=== PATIENT | male | born 1965 | race Hispanic/Latino ===

== ENCOUNTER 2020-04-21 17:53 | Inpatient (IN) | payer MEDICARE, MEDICAID, OTHER ==
[2020-04-21 18:22] LABS: #Basophils 0.1 thou/uL (0.0-0.2); #Eosinphils 0.4 thou/uL (0.0-0.7); #Monocytes 0.4 thou/uL (0.11-0.59); #Neutrophils 3.6 thou/uL (1.40-6.50); %Basophils 1.2 % (0.0-1.0); %Eosinophils 5.2 % (0.0-10.0); %Lymphocytes 39.7 % (21.0-51.0); %Monocytes 5.8 % (0.0-10.0); %Neutrophils 48.2 % (42.0-75.0); Hemoglobin 13.7 g/dL (14.0-18.0); Mean Corpuscular HGB CONC 33.8 g/dL (32.0-36.0); Mean Corpuscular Hemoglobin 28.3 pg (27.0-31.0); Mean Corpuscular Volume 83.7 fL (78.0-98.0); Mean Platelet Volume 8.5 fL (7.4-10.4); Platelet Count 174 thou/uL (130-400); RBC Distribution Width 12.2 % (11.5-14.5); Red Blood Cell (RBC) Count 4.86 mill/uL (4.70-6.10); White Blood Cell (WBC) Count 7.4 thou/uL (4.8-10.8)
[2020-04-21 19:16] LABS: ALT (SGPT) 21 U/L (8-55); AST (SGOT) 17 U/L (5-34); Albumin 4.2 g/dL (3.5-5.0); Alkaline Phosphatase 99 U/L (40-110); Anion Gap 12 mmol/L (10-20); BUN (Urea Nitrogen) 18 mg/dL (8.4-25.7); Bilirubin, Total 0.3 mg/dL (0.2-1.2); Calc. Creatinine Clearance 0 mL/min (70-130); Calcium 9.2 mg/dL (7.8-10.44); Carbon Dioxide 29 mmol/L (22-29); Chloride 97 mmol/L (98-107); Estimated GFR-MDRD 39; Globulin 4.2 g/dL (2.4-3.5); Glucose 401 mg/dL (70-105); Potassium 4.4 mmol/L (3.5-5.1); Protein, Total 8.4 g/dL (6.0-8.3); Sodium 134 mmol/L (136-145)
--- NOTE | 2020-04-21 20:01 | RAD ---
RIGHT FOOT THREE VIEWS: 04/21/20 HISTORY: History of foot surgery. Toe wound to right foot. In comparison to a 09/15/19 study, amputation at the more proximal aspect of the first metatarsal is n oted. Also, there was a previously noted surgical resection of the second metatarsal head. There is a significant change in the metatarsals compared to the prior examination with expanded appearance to the metatarsal which appears to be related to a healed fracture but there is added deformity and irre gularity to the amputated distal end of the second metatarsal and some irregularity and some more chr onic erosive change of the base of the proximal phalanx. These changes would suggest more of a chron ic osteomyelitis fixture. The other metatarsals appear unremarkable. No other findings. IMPRESSION: Significant change in the appearance of the resected head of the second metatarsal with more chronic appearing erosive change and some subtle erosive change of the base of the proximal phalanx. Changes would suggest underlying osteomyelitis, probably more chronic in nature given the plain film appear ance. POS: OFF
[2020-04-21] MEDS ORDERED: Piperacillin/Tazobactam 4.5 GM VIAL ONE (20:51)
[2020-04-21] MEDS ORDERED: Vancomycin 1 GM/200 ML BAG ONE (20:51)
[2020-04-21] MEDS ORDERED: Dextrose 5% in Water 1,000 ML IV PRN (21:21)
[2020-04-21] MEDS ORDERED: Acetaminophen 325 MG TAB PO PRN (21:21)
[2020-04-21] MEDS ORDERED: Dextrose 50% Abboject 50 ML SYRINGE SLOW IVP PRN (21:21)
[2020-04-21] MEDS ORDERED: Ondansetron ODT 4 MG TAB PO PRN (21:21)
--- NOTE | 2020-04-21 21:45 | PDOC.EVN ---
Event Note - Event Note Event Note: [id number] HP
[2020-04-21] MEDS ORDERED: metroNIDAZOLE 500 MG in Premix Bag 1 BAG IVPB SCH (22:00)
[2020-04-21] MEDS ORDERED: Cefepime 2 GM VIAL ONE (22:30)
[2020-04-21] MEDS ORDERED: metroNIDAZOLE 500 MG/100 ML BAG ONE (23:20)
--- NOTE | 2020-04-21 23:35 | HP ---
CHIEF COMPLAINT: Right foot infection. HISTORY OF PRESENT ILLNESS: Mr. Hearn is a 55-year-old male, with past medical history of diabetes mellitus, hypertension, osteomyelitis, toe amputation, who presented to the emergency room with wound infection of the right foot and hyperglycemia. The patient's family member at the bedside reports that the patient had a toe amputation performed about a year ago and had issues with wound healing since then. The patient has wound care visits once per week and today they noticed some drainage to that. They were concerned about it, and the blood sugar was high. They advised the patient to go to the emergency room. The patient has no history of fever, body aches, chills, nausea, vomiting, diarrhea, chest pain, or shortness of breath. The patient has been compliant with his medications including insulin. In the emergency room, the patient had an elevated glucose of 401. Lab work including x-ray of the foot concerning for underlying osteomyelitis. Septic workup done in the ED. The patient is started on IV antibiotics. Surgeon is being consulted. The patient is being admitted to hospital for further management. PAST MEDICAL HISTORY: 1. Osteomyelitis of the foot. 2. Diabetes mellitus. 3. Hypertension. PAST SURGICAL HISTORY: Right great toe amputation. FAMILY HISTORY: Reviewed and noncontributory. HOME MEDICATIONS: Please see home medication reconciliation form for updated medications. ALLERGIES: NO KNOWN ALLERGIES. SOCIAL HISTORY: No history of smoking, alcohol drinking, or drug abuse. REVIEW OF SYSTEMS: Review of 14 systems negative except what is mentioned in the history of present illness. PHYSICAL EXAMINATION: GENERAL: The patient is awake, does not appear to be in acute distress. VITAL SIGNS: Blood pressure is 149/80, pulse is 81, respiratory rate 17, temperature is 98.3, oxygen saturation 98% on room air. HEAD AND NECK: Normocephalic, atraumatic. Neck is supple. No JVD. CHEST: Fair bilateral air entry. HEART: S1, S2. Regular. ABDOMEN: Soft, nontender. Bowel sounds present. NEUROLOGIC: Awake, alert. Moving extremities. PSYCH: Unable to assess. EXTREMITIES: Right first toe amputated with a thickened white discolored area around the wound. No fluctuance. No obvious drainage. The wound has a foul odor. SKIN: As mentioned above. LABORATORY DATA: Sodium 134. Creatinine 1.8, baseline is around 1.3. Glucose is 401. WBC 7.4, hemoglobin 13.7, platelets 174. ESR is 19. CRP is less than 0.5. ASSESSMENT: 1. Acute osteomyelitis, foot. 2. Diabetic foot infection. 3. Acute kidney injury. 4. Diabetes mellitus with hyperglycemia. 5. Hypertension. 6. History of toe amputation. PLAN: 1. Admit. 2. Septic workup done in the ED. 3. IV antibiotics. 4. Surgeon is being consulted for evaluation and further management. 5. Consult Wound Care. 6. Monitor and control blood glucose. 7. Reconcile home medications. 8. DVT prophylaxis as appropriate. 9. Expected length of stay, 2 midnights or more. Job ID: [id number]
[2020-04-22] MEDS: Sodium Chloride 0.9% 1,000 ML IV SCH ×4 (00:03→23:27)
[2020-04-22 00:14] VITALS: BMI 31.3
[2020-04-22 05:36] LABS: #Basophils 0.1 thou/uL (0.0-0.2); #Eosinphils 0.5 thou/uL (0.0-0.7); #Lymphocytes 2.9 thou/uL (1.20-3.40); #Monocytes 0.6 thou/uL (0.11-0.59); #Neutrophils 4.3 thou/uL (1.40-6.50); %Basophils 0.7 % (0.0-1.0); %Eosinophils 5.5 % (0.0-10.0); %Lymphocytes 34.6 % (21.0-51.0); %Monocytes 7.2 % (0.0-10.0); Hemoglobin 12.8 g/dL (14.0-18.0); Mean Corpuscular HGB CONC 33.7 g/dL (32.0-36.0); Mean Corpuscular Hemoglobin 28.3 pg (27.0-31.0); Mean Corpuscular Volume 83.9 fL (78.0-98.0); Mean Platelet Volume 8.4 fL (7.4-10.4); Platelet Count 150 thou/uL (130-400); RBC Distribution Width 12.2 % (11.5-14.5); Red Blood Cell (RBC) Count 4.53 mill/uL (4.70-6.10); White Blood Cell (WBC) Count 8.3 thou/uL (4.8-10.8)
[2020-04-22 06:02] LABS: Anion Gap 12 mmol/L (10-20); BUN (Urea Nitrogen) 17 mg/dL (8.4-25.7); Calc. Creatinine Clearance 71 mL/min (70-130); Calcium 8.1 mg/dL (7.8-10.44); Carbon Dioxide 24 mmol/L (22-29); Chloride 105 mmol/L (98-107); Estimated GFR-MDRD 45; Glucose 264 mg/dL (70-105); Potassium 4.2 mmol/L (3.5-5.1); Sodium 137 mmol/L (136-145)
[2020-04-22 08:06] LABS: Glucose 213 mg/dL (70-105)
[2020-04-22] MEDS: metroNIDAZOLE 500 MG in Premix Bag 1 BAG IVPB SCH ×3 (08:16→23:27)
[2020-04-22] MEDS: Vancomycin 1 GM in Premix Bag 1 BAG IVPB SCH ×2 (08:16→20:31)
[2020-04-22] MEDS: Heparin 5,000 UNITS/ML VIAL SC SCH ×3 (08:16→20:31)
[2020-04-22] MEDS ORDERED: Insulin Glargine 10 UNITS in Pre-Filled Syringe 1 EACH SC SCH ×2 (10:00→21:00)
[2020-04-22] MEDS: HumaLOG 300 UNITS/3 ML VIAL SC PRN ×3 (12:17→22:01)
[2020-04-22] MEDS: Cefepime 1 GM in Sodium Chloride 0.9% 100 ML IVPB SCH ×2 (12:19→22:01)
[2020-04-22 12:21] LABS: Glucose 288 mg/dL (70-105)
[2020-04-22 12:37] LABS: SARS-CoV-2 MS2 Positive; SARS-CoV-2 N Gene Negative; SARS-CoV-2 S Gene Negative; SARS-CoV-2 by NAA Not Detected (NotDetected); SARS-CoV-2 orf1ab Negative
--- NOTE | 2020-04-22 13:02 | PDOC.HOSPP ---
- Subjective Encounter Date: 04/22/20 Subjective: No new complaints. - Objective Vital Signs & Weight: Vital Signs (12 hours) Temp Pulse Resp BP Pulse Ox 04/22/20 11:38 98.0 F 80 12 155/98 H 98 04/22/20 07:44 97.6 F 89 14 160/93 H 95 04/22/20 03:41 97.8 F 75 18 117/78 93 L Weight Admit Weight 212 lb Weight 212 lb I&O: 04/21/20 04/22/20 04/23/20 06:59 06:59 06:59 Intake Total 2300 220 Balance 2300 220 Result Diagrams: 04/22/20 05:22 04/22/20 11:48 Additional Labs: Accuchecks 04/22/20 04/21/20 04/21/20 10:50 21:53 20:32 POC Glucose 236 H 298 H 306 H 04/21/20 18:07 POC Glucose 372 H Hospitalist ROS - Medication Medications: Active Medications Generic Name Dose Route Start Last Admin Trade Name Freq PRN Reason Stop Dose Admin Heparin Sodium (Porcine) 5,000 units 04/22/20 09:00 04/22/20 08:16 Heparin SC 5,000 units TID FRANKLIN Administration Sodium Chloride 1,000 mls @ 100 mls/hr 04/21/20 21:30 04/22/20 00:03 Normal Saline 0.9% IV 1,000 mls .Q10H FRANKLIN Administration Cefepime HCl 1 gm/ Sodium 100 mls @ 200 mls/hr 04/22/20 11:00 04/22/20 12:19 Chloride IVPB 100 mls 1100,2300 FRANKLIN Administration Vancomycin HCl 1 gm/ Device 200 mls @ 200 mls/hr 04/22/20 09:00 04/22/20 08: 16 IVPB 200 mls Q12HR FRANKLIN Administration Metronidazole 500 mg/ Device 100 mls @ 100 mls/hr 04/22/20 08:00 04/22/20 08: 16 IVPB 100 mls 0800,1600,2359 FRANKLIN Administration Insulin Human Lispro 0 units 04/21/20 21:21 04/22/20 12:17 Humalog SC 4 unit .MODERATE SLIDING SC PRN Administration Moderate Correctional Scale - Exam General Appearance: awake alert Neck: supple, no JVD Heart: RRR, no murmur, no gallops, no rubs, normal peripheral pulses Respiratory: CTAB, no wheezes, no rales, no ronchi, normal chest expansion Gastrointestinal: soft Neurological: cranial nerve grossly intact, no new deficit Hosp A/P (1) Acute kidney injury Code(s): N17.9 - ACUTE KIDNEY FAILURE, UNSPECIFIED Status: Acute (2) Foot osteomyelitis Code(s): M86.9 - OSTEOMYELITIS, UNSPECIFIED Status: Acute (3) Uncontrolled diabetes mellitus Code(s): E11.65 - TYPE 2 DIABETES MELLITUS WITH HYPERGLYCEMIA Status: Acute - Plan Continue broad-spectrum antibiotics. Follow recommendations by surgical team. Continue IV fluids for kidney injury and repeat BMP in the morning. Continue Lantus 10 units in the evening and add 10 units in the morning to achieve better sugar level control. Check arterial ultrasound of the lower extremities to assess vascular supply.
--- NOTE | 2020-04-22 16:10 | ULT ---
RIGHT LOWER EXTREMITY ARTERIAL DOPPLER EXAM: 04/22/20 HISTORY: Right foot osteomyelitis. Real time color Doppler evaluation of the right lower extremity was performed. PSV (cm/s) Proximal common femoral artery 115 Proximal superficial femoral artery 104 Mid 106 Distal 118 Profunda femoral artery 81 Popliteal 70 Posterior tibial 99 Anterior tibial 66 Dorsalis pedis 112 Triphasic waveform patterns are seen below the knee. IMPRESSION: Findings that would suggest some mild to moderate (less than 50%) narrowing at the junction of the di stal superficial femoral artery and popliteal artery. POS: OFF
--- NOTE | 2020-04-22 16:42 | PDOC.CONS ---
- Consultation Encounter Date: 04/22/20 Encounter Time: 16:36 CHIEF COMPLAINT: Problem with foot HISTORY OF PRESENT ILLNESS: 55-year-old male with a history of diabetes and osteomyelitis with previous toe amputation presented to the emergency department with concerns of wound infection of his previous right great toe amputation site. He was also noted to be hyperglycemic. Right great toe amputation occurred approximately 1 year ago and was complicated by poor wound healing. He is gone to wound care visits regularly since that time according to the family member. REVIEW OF SYSTEMS: Unable to obtain due to patient's communication struggles PAST MEDICAL HISTORY: Diabetes mellitus Hypertension PAST SURGICAL HISTORY: Right great toe amputation FAMILY HISTORY: Noncontributory SOCIAL HISTORY NON- smoker, denies illicit drug use, endorses occasional alcohol consumption. ALLERGIES: No known drug allergies PHYSICAL EXAM: Vital Signs: HR 75 BP 117/78 T 97.8 RR 18 SpO2 [ ] General: Alert, no acute distress ENT: Sclera anicteric, pupils equal and reactive, mucous membranes moist Neck: No jugular venous distention, trachea midline Cardiovascular: Regular rate and rhythm Pulmonary: Clear to auscultation Abdominal: Soft, nondistended, nontender Genitourinary: Normal anatomy Rectal: Deferred Integument: No abnormal rashes or lesions Musculoskeletal: Status post amputation of right great toe with excess skin. No concern for infection. LABORATORY: Laboratory analysis reviewed and demonstrates a white blood cell count of 8.3. Elevated creatinine at 1.6. Hyperglycemia to 64 IMAGING: X-ray of the right foot reviewed as well as the radiologist interpretation. Demonstrates erosive changes to the second metatarsal head that may be due to osteomyelitis. Chronic erosion is favored. ASSESSMENT: 55-year-old diabetic male with right great toe amputation complicated by poor wound healing. No evidence of active osteomyelitis or infection at this time. PLAN: Recommend wound care consultation for maintenance of right great toe wound. No surgical intervention indicated. We will follow peripherally. Please call for any further questions.
[2020-04-22 17:27] LABS: Glucose 237 mg/dL (70-105)
[2020-04-22 21:36] LABS: Glucose 331 mg/dL (70-105)
[2020-04-22] MEDS ORDERED: hydrALAZINE 20 MG/ML VIAL SLOW IVP PRN (23:37)
[2020-04-22] MEDS ORDERED: hydrALAZINE 20 MG/ML VIAL SLOW IVP SCH (23:45)
[2020-04-23 05:14] LABS: #Basophils 0.1 thou/uL (0.0-0.2); #Eosinphils 0.5 thou/uL (0.0-0.7); #Lymphocytes 3.6 thou/uL (1.20-3.40); #Monocytes 0.5 thou/uL (0.11-0.59); #Neutrophils 4.2 thou/uL (1.40-6.50); %Basophils 1.1 % (0.0-1.0); %Eosinophils 5.9 % (0.0-10.0); %Lymphocytes 40.4 % (21.0-51.0); %Monocytes 5.7 % (0.0-10.0); %Neutrophils 46.8 % (42.0-75.0); Hemoglobin 13.7 g/dL (14.0-18.0); Mean Corpuscular HGB CONC 33.2 g/dL (32.0-36.0); Mean Corpuscular Hemoglobin 27.7 pg (27.0-31.0); Mean Corpuscular Volume 83.6 fL (78.0-98.0); Mean Platelet Volume 8.3 fL (7.4-10.4); Platelet Count 168 thou/uL (130-400); RBC Distribution Width 12.1 % (11.5-14.5); Red Blood Cell (RBC) Count 4.96 mill/uL (4.70-6.10)
[2020-04-23 05:40] LABS: Anion Gap 13 mmol/L (10-20); BUN (Urea Nitrogen) 13 mg/dL (8.4-25.7); Calc. Creatinine Clearance 85 mL/min (70-130); Calcium 8.3 mg/dL (7.8-10.44); Carbon Dioxide 22 mmol/L (22-29); Chloride 105 mmol/L (98-107); Estimated GFR-MDRD 56; Glucose 160 mg/dL (70-105); Potassium 4.1 mmol/L (3.5-5.1); Sodium 136 mmol/L (136-145)
[2020-04-23 08:12] LABS: Glucose 205 mg/dL (70-105)
[2020-04-23 08:14] LABS: Vancomycin, Trough 11.3 ug/mL
[2020-04-23] MEDS: metroNIDAZOLE 500 MG in Premix Bag 1 BAG IVPB SCH ×3 (08:42→23:08)
[2020-04-23] MEDS: Heparin 5,000 UNITS/ML VIAL SC SCH ×3 (08:42→20:08)
[2020-04-23] MEDS: Vancomycin 1 GM in Premix Bag 1 BAG IVPB SCH ×2 (08:43→20:08)
[2020-04-23] MEDS: Cefepime 1 GM in Sodium Chloride 0.9% 100 ML IVPB SCH ×2 (11:07→22:37)
[2020-04-23] MEDS: Insulin Glargine 10 UNITS in Pre-Filled Syringe 1 EACH SC SCH (11:07)
[2020-04-23 12:09] LABS: Glucose 314 mg/dL (70-105)
[2020-04-23] MEDS: HumaLOG 300 UNITS/3 ML VIAL SC PRN ×2 (12:35→17:57)
[2020-04-23 14:08] LABS: Amphetamine Not Detected (NotDetected); Barbiturates Screen Not Detected (NotDetected); Benzodiazepine Screen Not Detected (NotDetected); Cocaine Metabolite Screen Not Detected (NotDetected); Medtox Control Line Valid? VALID (VALID); Medtox Reader # READER 4; Methadone Not Detected (NotDetected); Methamphetamine Not Detected (NotDetected); Opiate Screen Not Detected (NotDetected); Oxycodone Screen Not Detected (NotDetected); Phencyclidine (PCP) Not Detected (NotDetected); THC/Cannabinoid Screen Not Detected (NotDetected); Tricyclic Screen Not Detected (NotDetected)
--- NOTE | 2020-04-23 14:08 | PDOC.HOSPP ---
- Subjective Encounter Date: 04/23/20 Subjective: No acute events this morning. - Objective Vital Signs & Weight: Vital Signs (12 hours) Temp Pulse Resp BP Pulse Ox 04/23/20 12:00 98.5 F 87 18 168/85 H 96 04/23/20 09:02 161/94 H 04/23/20 08:00 98 04/23/20 07:37 98.1 F 82 20 163/94 H 98 04/23/20 03:19 97.8 F 18 L 18 146/90 H 96 Weight Admit Weight 212 lb Weight 212 lb I&O: 04/22/20 04/23/20 04/24/20 06:59 06:59 06:59 Intake Total 2300 2040 Balance 2300 2040 Result Diagrams: 04/23/20 05:00 04/23/20 11:43 Additional Labs: Accuchecks 04/23/20 04/22/20 12:03 16:13 POC Glucose 283 H 235 H Hospitalist ROS - Medication Medications: Active Medications Generic Name Dose Route Start Last Admin Trade Name Freq PRN Reason Stop Dose Admin Heparin Sodium (Porcine) 5,000 units 04/22/20 09:00 04/23/20 08:42 Heparin SC 5,000 units TID FRANKLIN Administration Sodium Chloride 1,000 mls @ 100 mls/hr 04/21/20 21:30 04/22/20 23:27 Normal Saline 0.9% IV 1,000 mls .Q10H FRANKLIN Administration Insulin Glargine 10 units/ 0.1 mls @ 0 mls/hr 04/22/20 21:00 04/22/20 22:00 Miscellaneous Medication SC 0.1 mls HS FRANKLIN Administration Cefepime HCl 1 gm/ Sodium 100 mls @ 200 mls/hr 04/22/20 11:00 04/23/20 11:07 Chloride IVPB 100 mls 1100,2300 FRANKLIN Administration Vancomycin HCl 1 gm/ Device 200 mls @ 200 mls/hr 04/22/20 09:00 04/23/20 08: 43 IVPB 200 mls Q12HR FRANKLIN Administration Metronidazole 500 mg/ Device 100 mls @ 100 mls/hr 04/22/20 08:00 04/23/20 08: 42 IVPB 100 mls 0800,1600,2359 FRANKLIN Administration Insulin Glargine 10 units/ 0.1 mls @ 0 mls/hr 04/23/20 09:00 04/23/20 11:07 Miscellaneous Medication SC 0.1 mls QAM FRNAKLIN Administration Insulin Human Lispro 0 units 04/21/20 21:21 04/23/20 12:35 Humalog SC 6 unit .MODERATE SLIDING SC PRN Administration Moderate Correctional Scale - Exam General Appearance: awake alert ENT: normocephalic atraumatic Neck: supple, no JVD Heart: RRR, no murmur, no gallops, no rubs, normal peripheral pulses Respiratory: normal chest expansion, no tachypnea Neurological: cranial nerve grossly intact, no new deficit Hosp A/P (1) Acute kidney injury Code(s): N17.9 - ACUTE KIDNEY FAILURE, UNSPECIFIED Status: Acute (2) Foot osteomyelitis Code(s): M86.9 - OSTEOMYELITIS, UNSPECIFIED Status: Acute (3) Uncontrolled diabetes mellitus Code(s): E11.65 - TYPE 2 DIABETES MELLITUS WITH HYPERGLYCEMIA Status: Acute - Plan The patient is not septic. Surgery do not believe that he has an active infection in his foot. Changes on imaging are likely postsurgical. We will discontinue antibiotics on discharge. Creatinine level improving with hydration. His sugar levels remain uncontrolled. Increase evening dose of Lantus to 20 units and continue 10 units in the morning. [facility] evaluation. Hopefully he can be discharged in the morning.
[2020-04-23] MEDS: Sodium Chloride 0.9% 1,000 ML IV SCH ×2 (14:38→15:43)
[2020-04-23 17:42] LABS: Glucose 226 mg/dL (70-105)
[2020-04-23] MEDS ORDERED: Insulin Glargine 20 UNITS in Pre-Filled Syringe 1 EACH SC SCH (21:00)
[2020-04-23 21:30] LABS: Glucose 241 mg/dL (70-105)
[2020-04-23] MEDS ORDERED: HumaLOG 300 UNITS/3 ML VIAL SC PRN (22:26)
[2020-04-24 05:11] LABS: #Eosinphils 0.3 thou/uL (0.0-0.7); #Lymphocytes 2.5 thou/uL (1.20-3.40); #Monocytes 0.5 thou/uL (0.11-0.59); #Neutrophils 3.4 thou/uL (1.40-6.50); %Basophils 0.6 % (0.0-1.0); %Eosinophils 4.9 % (0.0-10.0); %Lymphocytes 36.4 % (21.0-51.0); %Monocytes 7.7 % (0.0-10.0); %Neutrophils 50.4 % (42.0-75.0); Hemoglobin 13.1 g/dL (14.0-18.0); Mean Corpuscular HGB CONC 33.1 g/dL (32.0-36.0); Mean Corpuscular Hemoglobin 27.7 pg (27.0-31.0); Mean Corpuscular Volume 83.9 fL (78.0-98.0); Mean Platelet Volume 8.1 fL (7.4-10.4); Platelet Count 132 thou/uL (130-400); RBC Distribution Width 12.3 % (11.5-14.5); White Blood Cell (WBC) Count 6.8 thou/uL (4.8-10.8)
[2020-04-24 05:31] LABS: Anion Gap 11 mmol/L (10-20); BUN (Urea Nitrogen) 11 mg/dL (8.4-25.7); Calc. Creatinine Clearance 100 mL/min (70-130); Carbon Dioxide 24 mmol/L (22-29); Chloride 107 mmol/L (98-107); Estimated GFR-MDRD 67; Glucose 163 mg/dL (70-105); Potassium 3.7 mmol/L (3.5-5.1); Sodium 138 mmol/L (136-145)
[2020-04-24] MEDS: HumaLOG 300 UNITS/3 ML VIAL SC PRN ×2 (06:07→12:23)
[2020-04-24 08:10] LABS: Glucose 182 mg/dL (70-105)
[2020-04-24] MEDS: metroNIDAZOLE 500 MG in Premix Bag 1 BAG IVPB SCH (08:15)
[2020-04-24] MEDS: Insulin Glargine 10 UNITS in Pre-Filled Syringe 1 EACH SC SCH (08:19)
[2020-04-24] MEDS: Vancomycin 1 GM in Premix Bag 1 BAG IVPB SCH (08:19)
[2020-04-24] MEDS: Heparin 5,000 UNITS/ML VIAL SC SCH (08:21)
[2020-04-24] MEDS: Sodium Chloride 0.9% 1,000 ML IV SCH (08:35)
[2020-04-24] MEDS ORDERED: Amlodipine 10 MG TAB PO SCH (09:00)
[2020-04-24] MEDS: Cefepime 1 GM in Sodium Chloride 0.9% 100 ML IVPB SCH (11:00)
[2020-04-24 12:19] VITALS: BP 162/100; TEMP 97.5
--- NOTE | 2020-04-25 08:12 | DIS ---
DATE OF ADMISSION: 04/22/2020 DATE OF DISCHARGE: 04/24/2020 DISCHARGE DIAGNOSES: 1. Right foot wound, osteomyelitis unlikely. 2. Acute kidney injury, resolved. 3. Uncontrolled diabetes mellitus, currently controlled on discharge. DISCHARGE MEDICATIONS: Those are unchanged from his home meds. HISTORY OF PRESENT ILLNESS AND HOSPITAL COURSE: The patient is a 55-year-old male with past medical history of diabetes mellitus on insulin and history of osteomyelitis with prior toe amputation who presented to the emergency department with concerns of wound infection. The patient does follow with an outpatient wound clinic and has been doing so for the past year. Initial imaging in the ER shows findings suggestive of osteomyelitis. The patient was placed on empiric antibiotics and admitted to the hospital. Surgery Service was consulted and after evaluation, the surgeon did not believe that the patient has an active infection with osteomyelitis. He attributed the changes on imaging to postsurgical changes related to his prior amputation. Recommendation is to continue his outpatient wound care. The patient was also managed with IV hydration, which led to improvement in his kidney function and his glucose levels were controlled after his home insulin was initiated. Job ID: [id number]
== END 2020-04-24 13:30 | disposition home or self-care (01) | DRG 565 ==
LOC: ERS 17:53 → SURG B 21:29 → OBSVTOIN 04-22 09:50
PROVIDERS: ADMIT Internal Medicine; ATTEND Internal Medicine
DX: T87.89 Other complications of amputation stump (principal); N17.9 Acute kidney failure, unspecified; I10 Essential (primary) hypertension; Y83.9 Surgical procedure, unspecified as the cause of abnormal reaction of the patient, or of later complication, without mention of misadventure at the time of the procedure; E11.65 Type 2 diabetes mellitus with hyperglycemia; Z79.4 Long term (current) use of insulin; Z89.421 Acquired absence of other right toe(s)
CPT/HCPCS: 36415; 36416; 80048; 80053; 80202; 80306; 80307; 82947; 85025; 85652; 86140; 87635; 93923; 96361; 96366; G0378; J0360; J0692; J1644; J1815; J2543; J3370; J3490; U0003

== ENCOUNTER 2020-07-03 15:36 | Outpatient (CLI) | payer MEDICARE, OTHER ==
--- NOTE | 2020-07-03 16:12 | RAD ---
Cervical spine 4 views: 07/03/2020 COMPARISON: None available HISTORY: Cervical spine pain FINDINGS: Disc space narrowing with degenerative endplate change and prominent anterior osteophyte fo rmation present at C5-6, C6-7, and C7-T1. Frontal imaging demonstrates significant mid cervical spine facet and uncovertebral osteophyte formation, left greater than right. Prominent right-sided un covertebral osteophyte formation noted at C6-7. Open-mouth odontoid view demonstrates a normal-appearing dens and C1-2 articulation. No prevertebral soft tissue swelling. IMPRESSION: Multilevel degenerative change within the cervical spine as detailed above.
--- NOTE | 2020-07-03 16:12 | RAD ---
Left hand 3 views HISTORY: Muscle wasting and atrophy. Left hand pain and numbness. FINDINGS: Joint spaces are preserved. No acute fracture, dislocation, or aggressive osseous erosions. No soft tissue calcifications demonstrated. IMPRESSION : No abnormalities are demonstrated.
--- NOTE | 2020-07-03 16:22 | RAD ---
CHEST ONE VIEW: History: Pain, weakness FINDINGS: Heart size is within normal limits. The lungs are clear. No confluent pneumonia, overt edema or pleur al effusion. IMPRESSION: No significant acute intrathoracic disease. POS: RRE
== END 2020-07-03 15:37 | disposition home or self-care (01) ==
LOC: BICRAD 15:36
PROVIDERS: ATTEND Family Medicine
DX: M54.2 Cervicalgia (principal); M62.532 Muscle wasting and atrophy, not elsewhere classified, left forearm; M47.812 Spondylosis without myelopathy or radiculopathy, cervical region
CPT/HCPCS: 71045; 72040